=== PATIENT | female | born 1945 | race Caucasian/White ===

== ENCOUNTER 2018-05-31 14:06 | Emergency (ER) | payer MEDICARE, BC ==
--- NOTE | 2018-05-31 14:49 | EDM.PDOC ---
ED HPI GENERAL MEDICAL PROBLEM - General Chief Complaint: Headache Stated Complaint: HEADACHE FOR PAST THREE DAYS Time Seen by Provider: 05/31/18 14:30 Source of Information: Reports: Patient History Limitations: Reports: No Limitations - History of Present Illness INITIAL COMMENTS - FREE TEXT/NARRATIVE: 72-year-old female with a remote history of migraine headaches as had a headache for the past 2 days very atypical and worse than her usual headaches. It is left occipital, stabbing pain that waxes and wanes. No illness, no nausea or vomiting, no vision changes, no fevers or chills or cold symptoms. She had diarrhea yesterday, the only physical complaint other than her headache. No eye pain. No rashes. She had some Maxalt from a previous prescription, took that yesterday with no effect. She is starting to get scared that something is seriously wrong. Onset: Gradual Duration: Day(s): (2 days) Location: Reports: Head Improves with: Reports: None Worsens with: Reports: None Associated Symptoms: Reports: No Other Symptoms Headache Pain Score (Numeric/FACES): 8 - Related Data Allergies Allergy/AdvReac Type Severity Reaction Status Date / Time No Known Allergies Allergy Verified 05/31/18 14:29 Home Meds: Home Meds Brimonidine Tartrate/Timolol [Combigan 0.2%-0.5% Eye Drops] 1 drop EYEBOTH BID 05/31/18 [History] Past Medical History HEENT History: Reports: Cataract, Glaucoma, Impaired Vision Gastrointestinal History: Reports: Irritable Bowel Syndrome DISCHARGE SPECIALIST History: Reports: Musculoskeletal History: Reports: Fracture Neurological History: Reports: Migraines, Seizure, Other (See Below) Other Neuro History: seizures as a toddler Oncologic (Cancer) History: Reports: Basal Cell Carcinoma - Past Surgical History HEENT Surgical History: Reports: Cataract Surgery Musculoskeletal Surgical History: Reports: Other (See Below) Other Musculoskeletal Surgeries/Procedures:: wrist repair Social & Family History - Tobacco Use Smoking Status *Q: Never Smoker - Alcohol Use Days Per Week of Alcohol Use: 7 Number of Drinks Per Day: 2 Total Drinks Per Week: 14 - Recreational Drug Use Recreational Drug Use: No ED ROS GENERAL - Review of Systems Review Of Systems: See Below Constitutional: Denies: Fever, Chills, Malaise HEENT: Denies: Sinus Problem, Vision Change Respiratory: Denies: Shortness of Breath, Cough Cardiovascular: Denies: Chest Pain GI/Abdominal: Reports: Diarrhea. Denies: Abdominal Pain, Nausea, Vomiting : Reports: No Symptoms Musculoskeletal: Reports: No Symptoms Skin: Reports: No Symptoms Neurological: Reports: Headache - Physical Exam Exam: See Below Exam Limited By: No Limitations General Appearance: Alert, No Apparent Distress (Patient actually looks quite comfortable) Eye Exam: Bilateral Eye: Normal Inspection Throat/Mouth: Normal Inspection Head Exam: Atraumatic, Other (No palpation tenderness over the temporal arteries or sinuses) Neck: Normal Inspection, Supple, Non-Tender Respiratory/Chest: No Respiratory Distress, Lungs Clear Neuro Exam (Abbreviated): Alert, Oriented, No Motor/Sensory Deficits Psychiatric: Normal Affect, Normal Mood Skin Exam: Warm, Dry Course - Vital Signs Last Recorded V/S: Last Vital Signs Temp 96.4 F 05/31/18 14:30 Pulse 90 05/31/18 14:30 Resp 16 05/31/18 14:30 BP 147/79 H 05/31/18 14:30 Pulse Ox 99 05/31/18 14:30 - Orders/Labs/Meds Orders: Active Orders 24 hr Category Date Time Status Saline Lock Insert [OM.PC] Routine Oth 05/31/18 15:22 Ordered Meds: Medications Discontinued Medications Generic Name Dose Route Start Last Admin Trade Name Prasanna PRN Reason Stop Dose Admin Ketorolac Tromethamine 30 mg 05/31/18 15:20 05/31/18 15:30 Toradol IVPUSH 05/31/18 15:21 30 mg ONETIME ONE Administration Methylprednisolone Sodium Succinate 62.5 mg 05/31/18 15:59 05/31/18 16:05 Solu-Medrol IVPUSH 05/31/18 16:00 62.5 mg ONETIME ONE Administration Sodium Chloride 10 ml 05/31/18 15:22 05/31/18 15:31 Saline Flush FLUSH 10 ml ASDIRECTED PRN Administration Keep Vein Open - Re-Assessments/Exams Free Text/Narrative Re-Assessment/Exam: 05/31/18 14:[address] without contrast will be obtained first, with results dictating treatment. 05/31/18 15:58 Some improvement in the headache after the Toradol, CT was negative. She was given 62.5 mg of IV Solu-Medrol and 10 additional doses of oral Toradol to take 3-4 times daily through the weekend. Recheck next week if not improving satisfactorily. Departure - Departure Time of Disposition: 16:10 Disposition: Home, Self-Care 01 Condition: Good Clinical Impression: Headache Qualifiers: Headache type: unspecified Headache chronicity pattern: acute headache Intractability: not intractable Qualified Code(s): R51 - Headache - Discharge Information Instructions: General Headache Without Cause Referrals: Jordy Jaeger MD [Primary Care Provider] - Forms: ED Department Discharge Care Plan Goals: Take ketorolac every 6-8 hours for the next several days until headache is gone. Save any on used doses for future headaches. Consider rechecking next week if not improving satisfactorily, or return anytime sooner if worsening such as increased pain, nausea or vomiting or vision changes. - My Orders Last 24 Hours: My Active Orders 05/31/18 15:22 Saline Lock Insert [OM.PC] Routine - Assessment/Plan Last 24 Hours: My Active Orders 05/31/18 15:22 Saline Lock Insert [OM.PC] Routine
[2018-05-31] MEDS ORDERED: Ketorolac 30 MG/ML SDV IVPUSH ONE (15:20)
[2018-05-31] MEDS ORDERED: Sodium Chloride 0.9% 10 ML Syringe FLUSH PRN (15:22)
--- NOTE | 2018-05-31 15:49 | CRLCT ---
INDICATION: SEVERE HEADACHE CT HEAD WITHOUT CONTRAST TECHNIQUE: Multiple axial CT images were performed through the head without intravenous contrast administration. COMPARISON: No previous studies are currently available for comparison. FINDINGS: No acute intracranial hemorrhage is identified. No extra-axial collections are evident and there is no mass effect or midline shift. Ventricles are normal in size and configuration. Brain parenchyma appears normal with unremarkable costello-white differentiation. Osseous structures are within normal limits and no fractures are seen. Included portions of the paranasal sinuses and mastoid air cells are normally aerated. IMPRESSION: Normal non-contrast head CT. FLOR WINSTON MD [facility] Dictated by: Giancarlo Winston MD @ 05/31/2018 15:48:45 (Electronically Signed)
[2018-05-31] MEDS ORDERED: methylPREDNISolone Sodium Succinate 125 MG/2 ML SDV IVPUSH ONE (15:59)
== END 2018-05-31 16:10 | disposition home or self-care (01) ==
LOC: JP.ED 14:06
DX: R51 Headache (principal)
CPT/HCPCS: 70450; 96374; 96375; 99284; J1885; J2930

== ENCOUNTER 2021-10-07 06:24 | Day surgery (SDC) | payer MEDICARE, BC ==
[2021-10-07] MEDS ORDERED: Sodium Chloride 0.9% 1,000 ML IV SCH (06:30)
[2021-10-07] MEDS ORDERED: Propofol 200 MG/20 ML SDV ONE (07:26)
[2021-10-07] MEDS ORDERED: fentaNYL 100 MCG/2 ML SDV ONE (07:26)
[2021-10-07] MEDS ORDERED: Midazolam 1 MG/ML 2 ML SDV ONE (07:27)
[2021-10-07] MEDS ORDERED: Atropine 0.4 MG/ML SDV ONE (08:39)
== END 2021-10-07 09:30 | disposition home or self-care (01) ==
LOC: JP.SDS 06:24
PROVIDERS: ATTEND Surgery
DX: Z12.11 Encounter for screening for malignant neoplasm of colon (principal); K57.30 Diverticulosis of large intestine without perforation or abscess without bleeding; K20.90 Esophagitis, unspecified without bleeding
CPT/HCPCS: 43239; G0121; J0461; J2250; J2704; J3010; J7030; 88305